=== PATIENT | female | born 1940 | race Caucasian/White ===

== ENCOUNTER 2022-04-15 14:20 | Emergency (ER) | payer OTHER ==
[~2022-04-15] VITALS: Ht 154.9 cm; Wt 68.0 kg
[~2022-04-15 14:20] MED LIST: ATOR80TA PO; DICL100G16 TOP; GLIP5TAB26 PO; HYDR12.55 PO; LINA5TAB PO; LOSA50TA39 PO; SERT50TA12 PO
--- NOTE | 2022-04-15 14:50 | NUR ---
Patient [id number] from care facility found on the floor by staff, c/o headache. On 2lpm via NC, 02 sat 93%. Kept comfortable, will continue to monitor accordingly.
--- NOTE | 2022-04-15 14:55 | NUR ---
RT at bedside for breathing treatment.
[2022-04-15] MEDS ORDERED: IPRATROPIUM NEB FS 0.5 MG/2.5 ML AMPUL.NEB NEB ONE (15:00)
[2022-04-15] MEDS ORDERED: ALBUTEROL FS 2.5 MG/3 ML VIAL.NEB NEB ONE (15:00)
--- NOTE | 2022-04-15 15:00 | NUR ---
wheeled patient to CT.
[2022-04-15 15:10] LABS: BASOPHILS # (AUTO) 0.1 K/uL (0.0-0.2); BASOPHILS % (AUTO) 0.8 % (0.0-2.0); HEMATOCRIT 46 % (33-45); MEAN CORPUSCULAR HGB CONC 33 g/dl (31.0-36.0); MEAN CORPUSCULAR VOLUME 89 fL (82-100); MONOCYTES # (AUTO) 0.4 K/uL (0.1-1.30); MONOCYTES % (AUTO) 3.8 % (2.0-12.0); NEUTROPHILS # (AUTO) 8.6 K/uL (1.8-8.9); NEUTROPHILS % (AUTO) 85.4 % (43.0-81.0); PLATELET COUNT (AUTO) 202 K/uL (150-450); RED BLOOD CELL COUNT(AUTO) 5.12 MIL/uL (4.0-5.2); WHITE BLOOD COUNT (AUTO) 10.1 K/uL (4.3-11.0)
[2022-04-15 15:24] LABS: ALANINE AMINOTRANSFERASE 62 U/L (12-78); ALBUMIN 3.7 g/dL (3.4-5.0); ALKALINE PHOSPHATASE 61 U/L (46-116); ASPARTATE AMINOTRANSFERASE 44 U/L (15-37); BILIRUBIN,DIRECT 0.2 mg/dL (0.0-0.2); BILIRUBIN,TOTAL 0.8 mg/dL (0.2-1.0); CALCIUM, SERUM 9.6 mg/dL (8.5-10.1); CARBON DIOXIDE 29 mmol/L (21-32); CHLORIDE 97 mmol/L (98-107); CREATININE 1.3 mg/dL (0.6-1.3); GLUCOSE 212 mg/dL (74-106); POTASSIUM 4.6 mmol/L (3.5-5.1); SODIUM SERUM 135 mmol/L (136-145); TOTAL PROTEIN, SERUM 7.9 g/dL (6.4-8.2); UREA NITROGEN, BLOOD 14 mg/dL (7-18)
[2022-04-15] MEDS ORDERED: ALBUTEROL FS 2.5 MG/3 ML VIAL.NEB ONE (16:20)
[2022-04-15] MEDS ORDERED: IPRATROPIUM NEB FS 0.5 MG/2.5 ML AMPUL.NEB ONE (16:21)
--- NOTE | 2022-04-15 16:35 | NUR ---
TEXT DR. TORRES FOR MRI APPROVAL
--- NOTE | 2022-04-15 18:11 | NUR ---
Jannet METZ [facility] said luis a is going to [facility] to ER. Phone number [phone].
--- NOTE | 2022-04-15 18:35 | NUR ---
DR. ESTRADA SPEAKING WITH ER DOCTOR.
[2022-04-15] MEDS ORDERED: ALBUTEROL FS 2.5 MG/0.5 ML VIAL.NEB NEB ONE (19:00)
[2022-04-15] MEDS ORDERED: ALBUTEROL FS 2.5 MG/0.5 ML VIAL.NEB ONE (20:14)
--- NOTE | 2022-04-15 21:53 | NUR ---
NEED CLINICALS, COVID, AND FACESHEET FAXED TO [phone]
[2022-04-15] MEDS ORDERED: DEXAMETHASONE SOD PHOSPHATE 10 MG/ML VIAL IV ONE (22:00)
[2022-04-15] MEDS ORDERED: methylPREDNISolone SOD SUCC 125 MG/2ML VIAL ONE (22:02)
[2022-04-15] MEDS ORDERED: DEXAMETHASONE SOD PHOSPHATE 10 MG/ML VIAL ONE (22:04)
--- NOTE | 2022-04-15 22:15 | NUR ---
YURIDIAT ATTEMPTS TO FAX FACESHEET AND BELONGINGS TO [phone]. LINE SHOWING BUSY. PER [facility] ONLY FAX NUMBER.
--- NOTE | 2022-04-15 23:21 | NUR ---
REFAXED CLINICAL PACKET TO [phone] PER [facility] REQUEST
--- NOTE | 2022-04-15 23:45 | NUR ---
REFAXED CLINICAL PACKET TO [phone] PER [facility] REQUEST
--- NOTE | 2022-04-16 04:00 | NUR ---
REC'D A CALL FROM VERONIQUE AT [facility]: PT IS GOING TO [id number]: DR CEE # FOR REPORT: [phone] [facility]: [phone]
--- NOTE | 2022-04-16 04:13 | NUR ---
[facility] TRANSP[facility] ARRANGED WITH [facility] WITH ETA [id number]
--- NOTE | 2022-04-16 04:25 | NUR ---
called for report at [facility], report given to SHAMAR Brand
--- NOTE | 2022-04-16 07:58 | NUR ---
[facility] TRANSPORT AT THE BEST SIDE, GAVE REPORT TO FAUSTO.
[2022-04-16 08:01] VITALS: BP 137/83
== END 2022-04-16 08:02 | disposition short-term general hospital (02) ==
LOC: ER 14:20
DX: G93.9 Disorder of brain, unspecified (principal); J44.9 Chronic obstructive pulmonary disease, unspecified; R77.8 Other specified abnormalities of plasma proteins; R09.02 Hypoxemia; R00.0 Tachycardia, unspecified; G93.6 Cerebral edema; M48.02 Spinal stenosis, cervical region; E11.9 Type 2 diabetes mellitus without complications; Z95.5 Presence of coronary angioplasty implant and graft; Z79.84 Long term (current) use of oral hypoglycemic drugs; Z79.899 Other long term (current) drug therapy; Z91.81 History of falling; Z20.822 Contact with and (suspected) exposure to COVID-19
CPT/HCPCS: 99291; 72125; 96374; 87426; 93005; 71045; 70450; 85025; 80048; 80076; 36415; 84484 ×2; 85730; 87081; 94640 ×2; J1100; C9803; J2930